=== PATIENT | male | born 1995 | race American Indian/Alaskan Native ===

== ENCOUNTER 2016-11-09 21:46 | Emergency (ER) | payer SELFPAY ==
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
[2016-11-10] MEDS ORDERED: NORCO 5/325 PO ONE (01:53)
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
[2016-11-10 02:05] VITALS: BP 143/81
== END 2016-11-10 02:04 | disposition home or self-care (01) ==
LOC: ED 21:46
DX: M25.562 Pain in left knee (principal); F17.200 Nicotine dependence, unspecified, uncomplicated; V49.49XA Driver injured in collision with other motor vehicles in traffic accident, initial encounter; Y93.9 Activity, unspecified; Y92.9 Unspecified place or not applicable; Y99.9 Unspecified external cause status